=== PATIENT | female | born 1955 | race Caucasian/White ===

== ENCOUNTER → 2018-06-11 | Outpatient (CLI) | payer MEDICARE, BC ==
--- NOTE | 2018-06-12 07:53 | MM ---
Reason for exam: screening (asymptomatic). Last mammogram was performed 3 years and 4 months ago. History: Patient is postmenopausal. Family history of breast cancer in maternal grandmother. Took estrogen for 4 years 4 months. Physical Findings: A clinical breast exam by your physician is recommended on an annual basis and results should be correlated with mammographic findings. MG 3D Screening Mammo W/Cad Bilateral CC and MLO view(s) were taken. Prior study comparison: February 18, 2015, bilateral MG screening mammo w CAD. October 01, 2012, bilateral digital screening mammo w/CAD. The breast tissue is heterogeneously dense. This may lower the sensitivity of mammography. Nodular asymmetric density superiorly left MLO view appears more defined and persists on 3D images. ASSESSMENT: Incomplete: need additional imaging evaluation, BI-RAD 0 RECOMMENDATION: Special view mammogram of the left breast. If lesion persists on supplemental views, image directed ultrasound is recommended. [facility] will attempt to contact patient to return for supplemental views and ultrasound if indicated.
== END ==
LOC: RADMAMWWP 07:29
PROVIDERS: ATTEND Family Medicine
DX: Z12.31 Encounter for screening mammogram for malignant neoplasm of breast (principal)
CPT/HCPCS: 77063; 77067

== ENCOUNTER → 2018-07-06 | Outpatient (CLI) | payer MEDICARE, BC ==
--- NOTE | 2018-07-08 08:22 | MM ---
Reason for exam: additional evaluation requested from abnormal screening. Last mammogram was performed 1 month ago. History: Patient is postmenopausal and history of other cancer. Family history of breast cancer in maternal grandmother. Took estrogen for 4 years 4 months. Physical Findings: Nurse did not find any significant physical abnormalities on exam. MG 3D Work Up W/Cad LT Spot compression CC, spot compression MLO, and ML view(s) were taken of the left breast. Prior study comparison: June 11, 2018, bilateral MG 3d screening mammo w/cad. February 18, 2015, bilateral MG screening mammo w CAD. The breast tissue is heterogeneously dense. This may lower the sensitivity of mammography. No suspicious abnormality. The previously seen superior left asymmetry appears as fibroglandular tissue and improves on additional views. Also appears similar to prior exams. These results were verbally communicated with the patient and result sheet given to the patient on 07/06/18. ASSESSMENT: Benign, BI-RAD 2 RECOMMENDATION: Return to routine screening mammogram schedule for both breasts.
== END | disposition home or self-care (01) ==
LOC: RADMAMWWP 14:08
PROVIDERS: ATTEND Family Medicine
DX: R92.8 Other abnormal and inconclusive findings on diagnostic imaging of breast (principal)
CPT/HCPCS: 77065; G0279; 77061

== ENCOUNTER → 2018-12-13 | Outpatient (CLI) | payer MEDICARE, BC ==
--- NOTE | 2018-12-13 15:11 | XR ---
EXAMINATION TYPE: XR abdomen complete w decub DATE OF EXAM: 12/13/2018 COMPARISON: NONE HISTORY: Abdominal distention, upper abdomen pain for 3 days TECHNIQUE: Supine, upright, and left side down lateral decubitus views of the abdomen are obtained o n 4 images. FINDINGS: There is no evidence for pneumoperitoneum. The bowel gas pattern is unremarkable as there is air throughout nondilated small and large bowel. There are air-fluid levels without bowel distention. No mass effects are seen. No unusual calcifications. Multiple calcifications in the pelvis felt likely represent phleboliths. Surgical clips present in the right upper quadrant. Degenerative disc changes are present in the visu alized spine. There may be calcified diverticula along the flanks. IMPRESSION: Possible underlying ileus or enteritis. Follow-up as indicated.
== END | disposition home or self-care (01) ==
LOC: RADXRMAIN 13:35
PROVIDERS: ATTEND Family Medicine
DX: R14.0 Abdominal distension (gaseous) (principal)
CPT/HCPCS: 74021

== ENCOUNTER → 2019-12-17 | Outpatient (CLI) | payer MEDICARE, BC ==
--- NOTE | 2019-12-18 08:15 | MM ---
Reason for exam: screening (asymptomatic). Last mammogram was performed 1 year and 5 months ago. History: Patient is postmenopausal and history of other cancer. Family history of breast cancer in maternal grandmother. Took estrogen for 4 years 4 months. Physical Findings: A clinical breast exam by your physician is recommended on an annual basis and results should be correlated with mammographic findings. MG 3D Screening Mammo W/Cad Bilateral CC and MLO view(s) were taken. Prior study comparison: July 06, 2018, left breast MG 3d work up w/cad LT. June 11, 2018, bilateral MG 3d screening mammo w/cad. The breast tissue is heterogeneously dense. This may lower the sensitivity of mammography. Focal asymmetry upper outer left breast anterior third position. ASSESSMENT: Incomplete: need additional imaging evaluation, BI-RAD 0 RECOMMENDATION: Special view mammogram of the left breast. If lesion persists on supplemental views, image directed ultrasound is recommended. [facility] will attempt to contact patient to return for supplemental views and ultrasound if indicated.
== END | disposition home or self-care (01) ==
LOC: RADMAMWWP 08:01
PROVIDERS: ATTEND Family Medicine
DX: Z12.31 Encounter for screening mammogram for malignant neoplasm of breast (principal)
CPT/HCPCS: 77063; 77067

== ENCOUNTER → 2020-01-01 | Outpatient (CLI) | payer MEDICARE, BC ==
--- NOTE | 2020-01-02 14:21 | MM ---
Reason for exam: additional evaluation requested from abnormal screening. Last mammogram was performed less than 1 month ago. History: Patient is postmenopausal and history of other cancer. Family history of breast cancer in maternal grandmother. Took estrogen for 4 years 4 months. Physical Findings: Nurse did not find any significant physical abnormalities on exam. MG 3D Work Up W/Cad LT Spot compression CC, spot compression MLO, and LM view(s) were taken of the left breast. Prior study comparison: December 17, 2019, bilateral MG 3d screening mammo w/cad. July 06, 2018, left breast MG 3d work up w/cad LT. There are scattered fibroglandular densities. There is no discrete abnormality. These results were verbally communicated with the patient and result sheet given to the patient on 01/01/20. ASSESSMENT: Negative, BI-RAD 1 RECOMMENDATION: Return to routine screening mammogram schedule for both breasts.
== END | disposition home or self-care (01) ==
LOC: RADMAMWWP 12:41
PROVIDERS: ATTEND Family Medicine
DX: R92.8 Other abnormal and inconclusive findings on diagnostic imaging of breast (principal)
CPT/HCPCS: 77065; G0279; 77061

== ENCOUNTER → 2020-12-21 | Outpatient (CLI) | payer MEDICARE, BC ==
--- NOTE | 2020-12-28 13:43 | BD ---
EXAMINATION TYPE: Axial Bone Density DATE OF EXAM: 12/21/2020 COMPARISON: 11/05/2008 CLINICAL HISTORY: 65 YEAR OLD FEMALE. ICD-10 CODE: N95.9 MENOPAUSAL Height: 60.4 Weight: 176 FRAX RISK QUESTIONS: NOTHING TO NOTE HERE RISK FACTORS HISTORY OF: Family History of Osteoporosis: YES, SISTER, NO FX Diet low in dairy products/other sources of calcium: YES Postmenopausal woman: 48 YRS OLD Take estrogen and/or progesterone medications: YES, IN THE PAST FOR 1-2 YEARS Hyperparathyroidism: NO Adrenal Insufficiency: NO MEDICATIONS: Additional Medications: BP MEDS, REFLUX MED, VIT D Additional History: HYPERTENSION, REFLUX EXAM MEASUREMENTS: Bone mineral densitometry was performed using the Tech [employer] System. Bone mineral density as measured about the Lumbar spine is: ----- L1-L4(G/cm2): 1.300 T Score Values are as follows: ----- L1: 0.3 ----- L2: 0.4 ----- L3: 0.9 ----- L4: 2.0 ----- L1-L4: 1.0 Bone mineral density has: Increased 9.5% since study of: 11/05/2008. This may be erroneous due to bony sclerosis. Bone mineral density about the R hip (g/cm2): 0.854 Bone mineral density about the L hip (g/cm2): 0.843 T Score values are as follows: -----R Neck: -1.6 -----L Neck: -1.9 -----R Total: -1.2 -----L Total: -1.3 Bone mineral density has: Decreased -7.3% since study of: 11/05/2008 FRAX: THERE IS A 10.1% CHANCE FOR A MAJOR OSTEOPOROTIC FX AND A 1.5% FOR Hip. .....probability FOR F X IN 10 YRS TIME IMPRESSION: Osteopenia. There is 10.1% chance for major osteoporotic fracture and a few 1.5% chance rib for hip f racture in 10 years. Patient should be considered for treatment. Recent screening and 2-5 years. NOTE: T-SCORE=SD OF THE YOUNG ADULT MEAN.
== END | disposition home or self-care (01) ==
LOC: RADBDWWP 07:40
PROVIDERS: ATTEND Family Medicine
DX: M85.80 Other specified disorders of bone density and structure, unspecified site (principal); N95.9 Unspecified menopausal and perimenopausal disorder
CPT/HCPCS: 77080

== ENCOUNTER → 2022-11-17 | Outpatient (CLI) | payer MEDICARE, BC ==
--- NOTE | 2022-11-18 09:04 | MM ---
Reason for Exam: Screening (asymptomatic). Last mammogram was performed 2 year(s) and 11 month(s) ago. Patient History: Menarche at age 14. First Full-Term at age 21. Left ovary removed at age 36. Right ovary removed at age 36. Hysterectomy at age 36. Postmenopausal. Other cancer. Estrogen for 4 years, 4 months. Maternal grandmother had breast cancer. Risk Values: Diana 5 year model risk: 1.4%. NCI Lifetime model risk: 4.3%. Prior Study Comparison: 06/11/2018 Bilateral Screening Mammogram, [facility]. 07/06/2018 Left Diagnostic Mammogram, [facility]. 12/17/2019 Bilateral Screening Mammogram, [facility]. 01/01/2020 Left Diagnostic Mammogram, [facility]. Tissue Density: The breast tissue is heterogeneously dense. This may lower the sensitivity of mammography. Findings: Analyzed By CAD. Benign-appearing vascular calcifications in the bilateral breasts is redemonstrated. There is no suspicious new group of microcalcifications or new suspicious mass in either breast. Overall Assessment: Negative, BI-RAD 1 Management: Screening Mammogram of both breasts in 1 year. . Patient should continue monthly self-breast exams. A clinical breast exam by your physician is recommended on an annual basis. This exam should not preclude additional follow-up of suspicious palpable abnormalities. Note on Diana scores and lifetime risk: 1. A Diana score greater than 3% is considered moderate risk. If this is the case, consider specialist referral to assess eligibility for a risk reducing agent. 2. If overall lifetime risk for the development of breast cancer is 20% or higher, the patient may qualify for future screening with alternating mammogram and breast MRI. Electronically signed and approved by: Tan Tidwell M.D.
== END | disposition home or self-care (01) ==
LOC: RADMAMWWP 07:17
PROVIDERS: ATTEND Family Medicine
DX: Z12.31 Encounter for screening mammogram for malignant neoplasm of breast (principal); Z78.0 Asymptomatic menopausal state; Z80.3 Family history of malignant neoplasm of breast
CPT/HCPCS: 77063; 77067

== ENCOUNTER → 2023-08-22 | Outpatient (CLI) | payer MEDICARE, BC ==
--- NOTE | 2023-08-22 10:05 | CA ---
Exercise Stress Test Report Name: Darling David Exam Date: 08/22/2023 08:16 Exam Location: [place] Stress Ht (in): 62 Wt (lb): 174 BSA: 1.80 Ordering Phys: Cruzito Bob DO Referring Phys: Cruzito Bob DO Technologist: CATARINA SEVILLA Age: 67 Gender: F : 1955 Procedure CPT: Indications: R06.09 Other forms of dyspnea ICD-10 Codes: Patient History: EDMUNDO. PALP, HTN, CHOL, FAMILY HX Medications: ROSUVASTATIN AND LOSARTAN Meds past 24 hrs: Pretest Chest Pain: No chest pain STRESS TEST Jose Protocol Exercise Duration (min:sec): 06:[address] Depressions (mm): Angina Score: Desir Score: Resting HR (bpm): 81 Peak HR (bpm): 132 Resting BP (mmHg): 120 / 73 Peak BP (mmHg): 165 / 76 MPHR: 151 Target HR: 128 % MPHR: 87 METS: 7.1 Total Dose: Peak Dose: Atropine: Double Product: 50208 BP Response: Stress Termination: Reached target heart rate Stress Symptoms: No chest pain or symptoms Stress Summary: The patient's target heart rate was achieved ECG ANALYSIS Resting ECG: Sinus rhythm right bundle branch block secondary ST-T wave changes Stress ECG: Patient exercised on Jose protocol for 6 minutes achieving 85% of predicted maximal heart rate without chest pain or diagnostic ST segment depression CONCLUSIONS Average exercise tolerance Inconclusive EKG portion of the stress test due to baseline EKG abnormalities Consider a stress imaging study Dr. Ronak Louis MD (Electronically Signed) Final Date: 22 August 2023 10:04
--- NOTE | 2023-08-22 11:06 | CA ---
Transthoracic Echo Report Name: Darling David Age: 67 Gender: F : 1955 Exam Date: 08/22/2023 08:39 Exam Location: [place] Echo Ht (in): 62 Wt (lb): 174 Ordering Physician: Cruzito Bob DO Attending/Referring Phys: Cruzito Bob DO Cottrell Operator Billie Strong RDCS Procedure CPT: Indications: R06.09 Other forms of dyspnea Cardiac Hx: Technical Quality: Fair Contrast 1: Total Dose (mL): Contrast 2: Total Dose (mL): MEASUREMENTS (Male / Female) Normal Values 2D ECHO LV Diastolic Diameter PLAX 3.2 cm 4.2 - 5.9 / 3.9 - 5.3 cm LV Systolic Diameter PLAX 1.3 cm IVS Diastolic Thickness 1.6 cm 0.6 - 1.0 / 0.6 - 0.9 cm LVPW Diastolic Thickness 1.5 cm 0.6 - 1.0 / 0.6 - 0.9 cm LV Relative Wall Thickness 1.0 RV Internal Dim ED PLAX 3.3 cm LA Volume 66.9 cm??? 18 - 58 / 22 - 52 cm??? LA Volume Index 35.4 cm???/m??? 16 - 28 cm???/m??? M-MODE Aortic Root Diameter MM 3.5 cm LA Systolic Diameter MM 3.5 cm LA Ao Ratio MM 1.0 AV Cusp Separation MM 2.1 cm DOPPLER AV Peak Velocity 160.5 cm/s AV Peak Gradient 10.3 mmHg AV Mean Velocity 114.1 cm/s AV Mean Gradient 5.8 mmHg AV Velocity Time Integral 31.3 cm LVOT Peak Velocity 114.9 cm/s LVOT Peak Gradient 5.3 mmHg LVOT Velocity Time Integral 23.0 cm MV Area PHT 2.8 cm??? Mitral E Point Velocity 52.2 cm/s Mitral A Point Velocity 101.0 cm/s Mitral E to A Ratio 0.5 MV Deceleration Time 272.3 ms MV E' Velocity 4.4 cm/s Mitral E to MV E' Ratio 11.9 TR Peak Velocity 213.8 cm/s TR Peak Gradient 18.3 mmHg Right Ventricular Systolic Press 22.6 mmHg FINDINGS Left Ventricle Moderately increased left ventricular wall thickness. Left ventricular cavity size normal. Normal left ventricular systolic function with no obvious regional wall motion abnormalities. Left ventricular ejection fraction is estimated at 55-60 %. Right Ventricle Normal right ventricular size and function. Right ventricular systolic pressure within normal limits. Right Atrium Normal right atrial size. Left Atrium Moderately increased left atrial volume. Mildly increased left atrial area. Mitral Valve Structurally normal mitral valve. Trace mitral regurgitation. Aortic Valve Trileaflet aortic valve. No aortic stenosis. Trace aortic regurgitation. Tricuspid Valve Structurally normal tricuspid valve. Mild tricuspid regurgitation. Pulmonic Valve Structurally normal pulmonic valve. Trace pulmonic regurgitation. Pericardium No pericardial effusion. Aorta Normal size aortic root and proximal ascending aorta. CONCLUSIONS Normal LV function Enlarged left atrium Previewed by: Dr. Ronak Louis MD (Electronically Signed) Final Date: 22 August 2023 11:06
== END | disposition home or self-care (01) ==
LOC: RADECHMAIN 08:01
PROVIDERS: ATTEND Family Medicine
DX: R94.31 Abnormal electrocardiogram [ECG] [EKG] (principal); I11.9 Hypertensive heart disease without heart failure; E78.00 Pure hypercholesterolemia, unspecified; R00.2 Palpitations; R06.09 Other forms of dyspnea
CPT/HCPCS: 93017; 93306

== ENCOUNTER → 2023-09-11 | Outpatient (CLI) | payer MEDICARE, BC ==
--- NOTE | 2023-09-11 12:31 | NM ---
EXAMINATION TYPE: NM stress cardiolite complete DATE OF EXAM: 09/11/2023 COMPARISON: NONE CLINICAL INDICATION: Female, 67 years old with history of R06.09 OTHER FORMS OF DYSPNEA; TECHNIQUE: After the intravenous administration of 9.84 mCi Tc 99m Sestamibi - Rest images obtained 45 minutes post injection. The patient exercised using a BHARGAVI protocol and 1 minute prior to peak exercise was injected with 25.5 mCi Tc 99m Sestamibi - Stress images obtained 20 minutes post injecti on. FINDINGS: Targeted heart rate was achieved during performance of the study. Review of stress and rest SPECT sebastian ges demonstrates no distinct perfusion abnormality. Nongated imaging only performed secondary to andreea ent's cardiac dysrhythmia. IMPRESSION: No scintigraphic evidence for reversible ischemia
--- NOTE | 2023-09-11 15:57 | CA ---
Exercise Nuclear Stress Test Report Name: Darling David Exam Date: 09/11/2023 10:46 Exam Location: [place] Stress Ht (in): 62 Wt (lb): 174 BSA: 1.80 Ordering Phys: Cruzito Bob DO Referring Phys: Cruzito Bob DO Technologist: Rom Etienne Age: 67 Gender: F : 1955 Procedure CPT: Indications: R06.09 Other forms of dyspnea ICD-10 Codes: Patient History: Medications: LOSARTAN, SINGULAIR, ROVASTATIN Meds past 24 hrs: Pretest Chest Pain: STRESS TEST Jose Protocol Exercise Duration (min:sec): 07:[address] Depressions (mm): Angina Score: Desir Score: Resting HR (bpm): 75 Peak HR (bpm): 149 Resting BP (mmHg): 143 / 88 Peak BP (mmHg): 161 / 87 MPHR: 151 Target HR: 128 % MPHR: 99 METS: 9.8 Total Dose: Peak Dose: Atropine: Double Product: 41211 BP Response: Stress Termination: TARGET HR REACHED/MAX EXERTION Stress Symptoms: NO SYMPTOMS Stress Summary: ECG ANALYSIS Resting ECG: Sinus rhythm, first-degree AV block, right bundle branch block Stress ECG: No significant ST-T wave changes are diagnostic for ischemia by ST segment analysis. CONCLUSIONS Good exercise tolerance for age achieving 9.7 METS Nonischemic ECG response to treadmill exercise Normal hemodynamic response to exercise Overall normal ECG portion of the treadmill nuclear stress test Please refer to the nuclear portion of the imaging for complete interpretation of the study Dr Jon Chavez (Electronically Signed) Final Date: 11 September 2023 15:56
== END | disposition home or self-care (01) ==
LOC: RADNMMAIN 08:03
PROVIDERS: ATTEND Family Medicine
DX: R06.09 Other forms of dyspnea (principal)
CPT/HCPCS: 93017; 78452; A9500